=== PATIENT | female | born 1960 | race Caucasian/White ===

== ENCOUNTER 2018-05-02 12:07 | Emergency (ER) | payer BC ==
--- NOTE | 2018-05-02 12:35 | ER Report ---
History and Physical Time Seen By MD: 12:10 HPI/ROS CHIEF COMPLAINT: Back/buttocks laceration HISTORY OF PRESENT ILLNESS: Patient is a 57-year-old female who presents to ED with complaint of a tach/buttocks laceration that occurred about one hour ago. She states that she was cleaning in her barn and fell back into a snowblower. She states that it cut through her pants and she noted bleeding. She states that she was able to walk well without any real pain. She states that the area has a and bleeding so she felt like she needed to come into the emergency department. She states that she is up-to-date with all of her tetanus vaccination. She is not taking any medication for this. She did apply a bandage to the area. REVIEW OF SYSTEMS: Constitutional: No fever, no chills. Cardiovascular: No chest pain, no palpitations. Respiratory: No cough, no shortness of breath. Musculoskeletal: No back pain. Skin: See history of present illness. Neurological: No headache. Allergies: Coded Allergies: No Known Drug Allergies (Unverified , 05/02/18) Home Meds No Active Prescriptions or Reported Meds Reviewed Nurses Notes: Yes Old Medical Records Reviewed: Yes Constitutional Vital Sign - Last 24 Hours 05/02/18 12:10 Temp 98.2 Pulse 77 Resp 16 B/P (MAP) 131/77 Pulse Ox 96 O2 Delivery Room Air Physical Exam General Appearance: The patient is alert, has no immediate need for airway protection and no signs of toxicity. She appears to be in no acute distress. Respiratory: There are no retractions, lungs are clear to auscultation. Cardiovascular: Regular rate and rhythm. ] Skin: There is a 7 cm jagged laceration that is gaping on the left superior buttocks region. This laceration does appear to go into the subcutaneous layer. No fascia or ligamentous involvement appreciated. Musculoskeletal: Neck is supple non tender. Extremities are nontender, nonswollen and have full range of motion. Medical Decision Making ED Course/Re-evaluation ED Course Procedure: Laceration repair. Verbal consent was obtained from the patient. The 7 cm gaping, jagged laceration on the left superior buttocks was anesthetized in the usual fashion with a 20 mL see 1% lidocaine with epinephrine. The wound was scrubbed, draped and explored to its base with a gloved finger. There were no deep structures involved. No tendon injury was identified. The wound was repaired with 7 4-0 Vicryl sutures to close the subcutaneous layer and 13 4-0 Prolene sutures to close the skin. The wound repair was complex. The procedure was performed by myself. She tolerated procedure well. Bacitracin and bandage was applied. Decision to Disposition Date: May 02, 2018 Decision to Disposition Time: 13:13 Depart Departure Latest Vital Signs Vital Signs Date Time Temp Pulse Resp B/P (MAP) Pulse Ox O2 Delivery O2 Flow Rate FiO2 05/02/18 12:10 98.2 77 16 131/77 96 Room Air Impression: Primary Impression: Laceration of buttock Condition: Improved Disposition: HOME OR SELF-CARE New Scripts No Active Prescriptions or Reported Meds Patient Instructions: Laceration (ED), Laceration Without Closure (ED) Additional Instructions: Monitor for signs and symptoms of infection including redness, swelling, discharge, fever. Follow-up with primary care provider in 14 days for suture removal. If having any worsening or concerning symptoms may return to the emergency department. Problem Qualifiers Primary Impression: Laceration of buttock Encounter type: initial encounter Laterality: left Qualified Codes: S31.821A - Laceration without foreign body of left buttock, initial encounter XAVIER VARGHSEE PA-C May 02, 2018 12:35
[2018-05-02] MEDS ORDERED: BACITRACIN OINT 0.9 GM PKT TP ONE (13:15)
[2018-05-02 13:18] VITALS: BP 131/93
== END 2018-05-02 13:25 | disposition home or self-care (01) ==
LOC: ER 12:21
DX: S31.821A Laceration without foreign body of left buttock, initial encounter (principal); W26.8XXA Contact with other sharp object(s), not elsewhere classified, initial encounter
CPT/HCPCS: 99283